=== PATIENT | male | born 1980 | race Caucasian/White ===

== ENCOUNTER 2019-01-02 11:21 | Emergency (ER) | payer MEDICARE, OTHER, SELFPAY ==
[2019-01-02 11:47] VITALS: BP 134/80; PULSE 74; RESP 16; TEMP 35.9; O2SAT 98
--- NOTE | 2019-01-02 11:55 | PC.NURSE ---
pt complaining of c1, c2 point tenderness, collar applied
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
[2019-01-02 12:38] VITALS: BP 125/70; PULSE 114; RESP 19; O2SAT 99
[2019-01-02 14:15] VITALS: BP 125/78; PULSE 66; RESP 16; O2SAT 100
== END 2019-01-02 14:16 | disposition home or self-care (01) ==
PROVIDERS: Emergency Provider Nurse Practitioner
DX: S13.4XXA Sprain of ligaments of cervical spine, initial encounter (principal); M25.531 Pain in right wrist; V43.52XA Car driver injured in collision with other type car in traffic accident, initial encounter
CPT/HCPCS: 70450; 72072; 72125; 73100; 99282; 99284

== ENCOUNTER → 2021-10-26 11:43 | Outpatient (CLI) | payer OTHER, SELFPAY ==
[2021-10-26 12:39] LABS: Prothrombin Time 60.3 SECONDS (10.1-12.7)
[2021-10-26 12:48] LABS: INR 5.2 (0.9-1.3)
== END ==
PROVIDERS: Referring Provider Internal Medicine Cardiovascular Disease; Visit Provider Internal Medicine Cardiovascular Disease
DX: I82.411 Acute embolism and thrombosis of right femoral vein (principal)
CPT/HCPCS: 36415; 85610